=== PATIENT | female | born 1990 | race Caucasian/White ===

== ENCOUNTER 2019-07-09 13:27 | Emergency (ER) | payer OTHER ==
[~2019-07-09] VITALS: Ht 157.5 cm; Wt 61.6 kg
[~2019-07-09 13:27] MED LIST: BEN25 PO; PRED20TA PO
[2019-07-09 13:31] VITALS: BP 125/59; PULSE 66; RESP 18; Ht 157.5 cm; Wt 61.6 kg
[2019-07-09] MEDS ORDERED: predniSONE 20 MG TAB PO ONE (15:00)
[2019-07-09] MEDS ORDERED: DIPHENHYDRAMINE 25 MG CAP PO ONE (15:00)
--- NOTE | 2019-07-09 15:24 | ERD ---
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 She denies sore throat, no difficulty swallowing, no shortness of breath. No history of previous episodes. No chills, no fever, no headache, no abdominal pain. ROS All systems reviewed and are negative except as per history of present illness. Medications Home Meds Active Scripts Diphenhydramine Hcl* (Benadryl*) 25 Mg Cap, 25 MG PO QHS PRN for ITCHING/RASH, #10 TAB Prov:SHADIA CUNNINGHAM MD 07/09/19 Prednisone* (Prednisone*) 20 Mg Tab, 40 MG PO DAILY for 3 Days, TAB Prov:SHADIA CUNNINGHAM MD 07/09/19 PMhx/Soc Medical and Surgical Hx: pt denies Medical Hx, pt denies Surgical Hx History of Surgery: No Hx Neurological Disorder: No Hx Respiratory Disorders: No Hx Cardiac Disorders: No Hx Psychiatric Problems: No Hx Miscellaneous Medical Probl: No Hx Alcohol Use: Yes (Occasionally) Hx Substance Use: No Hx Tobacco Use: No Smoking Status: Never smoker FmHx Family History: No diabetes, No coronary disease Physical Exam Vitals Vital Signs Date Temp Pulse Resp B/P (MAP) Pulse Ox O2 O2 Flow FiO2 Time Delivery Rate 07/09/19 98.1 66 18 125/59 97 13:31 (81) Physical Exam Const: No acute distress Head: Atraumatic Eyes: Normal Conjunctiva ENT: Normal External Ears, Nose and Mouth. Neck: Full range of motion. No meningismus. Resp: Clear to auscultation bilaterally Cardio: Regular rate and rhythm, no murmurs Abd: Soft, non tender, non distended. Normal bowel sounds Skin: Diffuse, homogeneous, micropapular rash, erythematous, nontender, predominantly in upper extremities and neck. Back: No midline or flank tenderness Ext: No cyanosis, or edema Neur: Awake and alert Psych: Normal Mood and Affect Results 24 hrs Current Medications Medications Dose Sig/Nuha Start Time Status Last (Trade) Ordered Route PRN Stop Time Admin Dose Reason Admin Prednisone 40 mg ONCE ONCE 8/17/19 DC 07/09/19 (Prednisone) PO 15:00 14:46 07/09/19 15:01 25 mg ONCE ONCE 07/09/19 DC 07/09/19 Diphenhydrami PO 15:00 14:46 ne HCl 07/09/19 15:01 (Benadryl) Procedures/MDM Vital signs stable, Differential diagnosis include but not limited to: Heat rash, contact dermatitis, viral exanthema, seborrheic dermatitis, scabies, acute allergic reaction, medication side effect. low suspicion for systemic infectious process, angioedema, anaphylactic shock. Physical examination and clinical presentation consistent most likely with allergic dermatitis. Results and clinical impression discussed with the patient who agree with management. The patient is stable to be treated outpatient and will be discharged home; some side effects of prescribed medications (skin atrophy, nausea, vomiting, diarrhea, interactions with other medications) were reviewed. The patient needs a follow up with the primary care provider in the next 48h. If symptoms persist, worsen or new symptoms develop, then patient should return to the ED immediately. Instructions explained and given directly by me with acknowledgment and demonstrated understanding. Disclaimer: Inadvertent spelling and grammatical errors are likely due to EHR/dictation software use and do not reflect on the overall quality of patient care. Also, please note that the electronic time recorded on this note does not necessarily reflect the actual time of the patient encounter. Departure Diagnosis: Primary Impression: Allergic dermatitis Condition: Stable Additional Instructions: Muchas marianna por [facility] para hughes servicio. Esperamos que en hughes visita a la lilli de emergencia hughes problema medico haya sido solucionado y que se sienta mucho mejor. Para estar seguros que hughes mejoria sigue en proceso, le pedimos el favor de hacer adiel fish de seguimiento medico con hughes doctor primario en los proximos 2-4 hogue. Lleve con usted estos documentos y las medicinas recetadas. Si myah sintomas empeoran, NO SE ESPERE, por favor regrese a lilli de emergencia INMEDIATAMENTE. En sandra que usted no tenga un mdico de atencin primaria: Llame al mdico o clnica comunitaria de referencia que aparece abajo thu las horas de consultorio para hacer adiel fish para que le vean. CLINICAS: [facility] [phone] [facility] [phone] [facility] [phone] [place] [phone] [place] [id number] [phone] [facility] [phone] SHADIA OSBORNE MD Jul 09, 2019 15:24
== END 2019-07-09 15:35 | disposition home or self-care (01) ==
LOC: FTE 13:27
DX: L30.9 Dermatitis, unspecified (principal)
CPT/HCPCS: 99283; J7512